=== PATIENT | female | born 1975 | race African-American/Black ===

== ENCOUNTER 2019-05-21 20:39 | Inpatient (IN) | payer MEDICARE, OTHER ==
[~2019-05-21] VITALS: Ht 152.4 cm; Wt 145.6 kg
[2019-05-21] VITALS (14 sets, daily range): BP systolic 44–235; BP diastolic 31–164
[2019-05-21] MEDS ORDERED: BUMEX2 MG PO ×2 (20:45→21:09)
[2019-05-21] MEDS ORDERED: HYDRALAZINE HCL25 MG (20:47)
[2019-05-21] MEDS ORDERED: GLUCOPHAGE500 MG PO (21:08)
[2019-05-21] MEDS ORDERED: ZESTRIL20 MG PO (21:08)
[2019-05-21] MEDS ORDERED: ALBUTEROL SULF8.5 GM INH (21:10)
[2019-05-21] MEDS ORDERED: K-DUR20 MEQ PO (21:10)
[2019-05-21] MEDS ORDERED: HYDRALAZINE HCL50 MG PO (21:11)
[2019-05-21] MEDS ORDERED: COZAAR25 MG PO (21:11)
[2019-05-21] MEDS ORDERED: FERROUS SULFAT325 MG PO (21:12)
[2019-05-21] MEDS ORDERED: CATAPRES0.2 MG PO (21:12)
[2019-05-21] MEDS ORDERED: NORMODYNE / TR200 MG PO (21:12)
[2019-05-21 21:32] LABS: BASOPHILS 0.2 % (0-2); EOSINOPHILS 0.5 % (0-7); HEMATOCRIT 43.1 % (36.0-48.0); HEMOGLOBIN 13.6 g/dL (12-16); IMMATURE GRANULOCYTES 0.3 % (0-5); MCH 28.4 pg (26.0-34.0); MCHC 31.6 g/dL (31.0-37.0); MEAN PLATELET VOLUME 9.5 fL (7.4-10.4); MONOCYTES 3.8 % (2-11); NEUTROPHILS 90.2 % (40-80); PLATELET COUNT 304 10x3/uL (130-400); RBC 4.79 10x6/uL (4.00-5.40); RDW 16.1 % (11.5-14.5); WBC 15.3 10x3/uL (4.8-10.8)
[2019-05-21 21:37] LABS: APTT 26.1 SECONDS (22.8-39.4); INR 1.1 (0.85-1.17); PROTIME 13.7 SECONDS (11.6-15.0)
[2019-05-21 21:38] LABS: D-DIMER-QUANTITATIVE 3.13 ug/mLFEU (0.20-0.54)
[2019-05-21 21:42] LABS: ALBUMIN 3.9 g/dL (3.4-5.0); ALKALINE PHOSPHATASE 102 U/L (46-116); ALT (SGPT) 34 U/L (10-68); BILIRUBIN - TOTAL 0.42 mg/dL (0.2-1.3); CALC OSMOLALITY 286 mosm/kg (275-300); CARBON DIOXIDE 24.2 mmol/L (21.0-32.0); CHLORIDE - SERUM 108 mmol/L (98-107); CREATININE - SERUM 0.7 mg/dL (0.6-1.3); GLUCOSE 199 mg/dL (74-106); POTASSIUM - SERUM 4.3 mmol/L (3.5-5.1); SODIUM 141 mmol/L (136-145); UREA NITROGEN 13 mg/dL (7-18); eGFR NON AFRICAN AMERICAN > 90 mL/min (90-120)
[2019-05-21] MEDS ORDERED: LIPITOR20 MG PO (21:48)
[2019-05-21] MEDS ORDERED: ROBAXIN500 MG PO (21:49)
[2019-05-21] MEDS ORDERED: BAYER CHEWABLE81 MG PO (21:53)
[2019-05-21 21:59] LABS: CKMB 2.2 U/L (0.0-3.6); CREATINE KINASE 81 UL (21-215); PRO BNP 560 pg/mL (0-125)
[2019-05-21 22:00] LABS: TROPONIN-I 0.412 ng/mL (0.000-0.060)
[2019-05-22] VITALS (35 sets, daily range): BP systolic 123–218; BP diastolic 71–143; Ht 152.4 cm; Wt 145.6 kg
[2019-05-22] MEDS ORDERED: CLARITIN 10 MG10 MG PO (01:03)
[2019-05-22] MEDS ORDERED: PROBIOTIC1 EAC1 PO (01:04)
[2019-05-22 04:30] LABS: BASOPHILS 0.1 % (0-2); EOSINOPHILS 0 % (0-7); HEMATOCRIT 40.6 % (36.0-48.0); HEMOGLOBIN 12.7 g/dL (12-16); IMMATURE GRANULOCYTES 0.4 % (0-5); LYMPHOCYTES 3.5 % (15-50); MCH 28.1 pg (26.0-34.0); MCHC 31.3 g/dL (31.0-37.0); MCV 89.8 fL (80.0-100.0); MEAN PLATELET VOLUME 10.2 fL (7.4-10.4); MONOCYTES 0.8 % (2-11); NEUTROPHILS 95.2 % (40-80); PLATELET COUNT 304 10x3/uL (130-400); RBC 4.52 10x6/uL (4.00-5.40); RDW 16.1 % (11.5-14.5)
[2019-05-22 05:10] LABS: ALBUMIN 3.4 g/dL (3.4-5.0); ALKALINE PHOSPHATASE 84 U/L (46-116); ALT (SGPT) 30 U/L (10-68); BILIRUBIN - TOTAL 0.53 mg/dL (0.2-1.3); CALC OSMOLALITY 289 mosm/kg (275-300); CALCIUM 8.5 mg/dL (8.5-10.1); CARBON DIOXIDE 26.2 mmol/L (21.0-32.0); CHLORIDE - SERUM 107 mmol/L (98-107); CKMB 9.1 U/L (0.0-3.6); CREATINE KINASE 168 UL (21-215); CREATININE - SERUM 0.8 mg/dL (0.6-1.3); GLUCOSE 163 mg/dL (74-106); POTASSIUM - SERUM 3.9 mmol/L (3.5-5.1); PROTEIN - SERUM 8.2 g/dL (6.4-8.2); SODIUM 143 mmol/L (136-145); UREA NITROGEN 15 mg/dL (7-18); eGFR NON AFRICAN AMERICAN 82 mL/min (90-120)
[2019-05-22 05:19] LABS: TROPONIN-I 2.686 ng/mL (0.000-0.060)
[2019-05-22 07:18] LABS: CKMB 9.5 U/L (0.0-3.6); CREATINE KINASE 130 UL (21-215)
[2019-05-22 07:23] LABS: TROPONIN-I 2.519 ng/mL (0.000-0.060)
[2019-05-22 13:32] LABS: CKMB 12.8 U/L (0.0-3.6); CREATINE KINASE 162 UL (21-215)
--- NOTE | 2019-05-22 14:52 | MORECARE ---
CASE MANAGEMENT DISCHARGE SUMMARY PATIENT: ARGENTINA RUTLEDGE UNIT: [id number] ADM DATE: 05/21/19 AGE: 44 : [birth year] SEX: F ROOM/BED: D.2304 AUTHOR: AVANI AVALOS PHYSICIAN: REFERRING PHYSICIAN: PRASHANT PAN MD DATE OF SERVICE: 05/22/19 Discharge Plan Patient Name: ARGENTINA RUTLEDGE Facility: [facility]:[place] : 1975 Planned Disposition: Home Anticipated Discharge Date: Discharge Date: Expected LOS: Initial Reviewer: [email or web address] Initial Review Date: 05/22/2019 Generated: 05/22/19 3:51 pm DCPIA - Discharge Planning Initial Assessment Updated by [email or web address]: Ritika Pace on 05/22/19 2:48 pm * Is the patient Alert and Oriented? Yes * How many steps to enter\exit or inside your home? * PCP CONOR AQUINO * Pharmacy [facility] * Preadmission Environment Home with Family * ADLs Partial Dependent * Partial ADLs (Assistance needed) Ambulation Bathing Dressing Eating Medication Management Toileting Transfers * Other Equipment WALKER, CANE, W/C, BSC, SC * List name and contact numbers for known caregivers / representatives who currently or will assist patient after discharge: ANDREW SHAVER [facility] [phone] * Verbal permission to speak to the caregivers and representatives has been obtained from the patient. Yes * Community resources currently utilized None * Additional services required to return to the preadmission environment? No * Can the patient safely return to the preadmission environment? Yes * Has this patient been hospitalized within the prior 30 days at any hospital? No Patient Name: ARGENTINA RUTLEDGE Page [id number] at 1452 All edits/amendments must be made on the electronic document DICTATION DATE: 05/22/191450 SENIOR LANDSCAPE ARCHITECT: ASPEN 05/22/191450 RPT#: [id number] DC DATE: STATUS: ADM IN [facility] [address] [place] [address] END OF REPORT
--- NOTE | 2019-05-22 15:04 | MORECARE ---
CASE MANAGEMENT DISCHARGE SUMMARY PATIENT: ARGENTINA RUTLEDGE UNIT: [id number] ADM DATE: 05/21/19 AGE: 44 : [birth year] SEX: F ROOM/BED: D.2304 AUTHOR: BAILEY,DOC PHYSICIAN: REFERRING PHYSICIAN: PRASHANT PAN MD DATE OF SERVICE: 05/22/19 Discharge Plan Patient Name: ARGENTINA RUTLEDGE Facility: [facility]:[place] : 1975 Planned Disposition: Home Anticipated Discharge Date: Discharge Date: Expected LOS: Initial Reviewer: [email or web address] Initial Review Date: 05/22/2019 Generated: 05/22/19 4:04 pm Comments DCP- Discharge Planning Updated by [email or web address]: Ritika Pace on 05/22/19 1:[address] Patient Name: ARGENTINA RUTLEDGE Admission Status: ER Accout number: [id number] Admission Date: 05-21-2019 : 1975 Admission Diagnosis: Attending: PRASHANT PAN Current LOS: 1 Anticipated DC Date: Planned Disposition: Home Primary Insurance: MEDICARE A & B Discharge Planning Comments: CM met with patient and her father to complete initial dc planning assessment. CM educated patient on the CM role and verbal consent given by patient to complete assessment. Patient lives at home with her mother where she is partially dependent with her care. At discharge patient plans to return home and feels this is a safe discharge. CM discussed availability of home health, rehab services, and medical equipment. Her family will drive her home. Patient denied known discharge needs at this time. CM will continue to follow and will assist as needed with dc plans/needs. Vinyl Hanger: Ritika Pace DCPIA - Discharge Planning Initial Assessment Updated by [email or web address]: Ritika Pace on 05/22/19 2:48 pm * Is the patient Alert and Oriented? Yes * How many steps to enter\exit or inside your home? * PCP CONOR AQUINO * Pharmacy [facility] * Preadmission Environment Home with Family * ADLs Partial Dependent * Partial ADLs (Assistance needed) Ambulation Bathing Dressing Eating Medication Management Toileting Transfers * Other Equipment WALKER, CANE, W/C, BSC, SC * List name and contact numbers for known caregivers / representatives who currently or will assist patient after discharge: ANDREW SHAVER - - [phone] * Verbal permission to speak to the caregivers and representatives has been obtained from the patient. Yes * Community resources currently utilized None * Additional services required to return to the preadmission environment? No * Can the patient safely return to the preadmission environment? Yes * Has this patient been hospitalized within the prior 30 days at any hospital? No Last DP export: 05/22/19 1:52 Patient Name: ARGENTINA RUTLEDGE Page [id number] at 1504 All edits/amendments must be made on the electronic document DICTATION DATE: 05/22/191503 PARALEGAL ASSISTANT: ASPEN 05/22/191503 RPT#: [id number] DC DATE: STATUS: ADM IN [facility] [address] [place] [address] END OF REPORT
[2019-05-22 18:28] LABS: CKMB 9.7 U/L (0.0-3.6); CREATINE KINASE 155 UL (21-215)
[2019-05-22 18:37] LABS: TROPONIN-I 2.982 ng/mL (0.000-0.060)
[2019-05-23 03:57] LABS: BASOPHILS 0.1 % (0-2); EOSINOPHILS 0.1 % (0-7); HEMATOCRIT 35.5 % (36.0-48.0); HEMOGLOBIN 11.5 g/dL (12-16); IMMATURE GRANULOCYTES 0.3 % (0-5); LYMPHOCYTES 14.5 % (15-50); MCH 28.3 pg (26.0-34.0); MCHC 32.4 g/dL (31.0-37.0); MONOCYTES 11.4 % (2-11); NEUTROPHILS 73.6 % (40-80); PLATELET COUNT 277 10x3/uL (130-400); RBC 4.07 10x6/uL (4.00-5.40); RDW 16.1 % (11.5-14.5); WBC 11.5 10x3/uL (4.8-10.8)
[2019-05-23 04:00] VITALS: BP 163/98
[2019-05-23 04:20] LABS: MCV 87.2 fL (80.0-100.0)
[2019-05-23 04:29] LABS: ANION GAP 9.2 mmol/L (8-16); CALCIUM 7.8 mg/dL (8.5-10.1); CARBON DIOXIDE 31.7 mmol/L (21.0-32.0); CREATININE - SERUM 0.9 mg/dL (0.6-1.3); POTASSIUM - SERUM 2.9 mmol/L (3.5-5.1)
[2019-05-23 09:09] VITALS: BP 110/74
[2019-05-23 16:20] VITALS: BP 122/81
[2019-05-23 21:13] VITALS: BP 138/65
[2019-05-24] VITALS (7 sets, daily range): BP systolic 117–195; BP diastolic 61–106
[2019-05-24 05:52] LABS: HEMATOCRIT 35.8 % (36.0-48.0); HEMOGLOBIN 11.4 g/dL (12-16); MCH 28.1 pg (26.0-34.0); MCHC 31.8 g/dL (31.0-37.0); MCV 88.4 fL (80.0-100.0); MEAN PLATELET VOLUME 9.8 fL (7.4-10.4); PLATELET COUNT 236 10x3/uL (130-400); RBC 4.05 10x6/uL (4.00-5.40); RDW 16.3 % (11.5-14.5)
[2019-05-24 05:53] LABS: WBC 8.2 10x3/uL (4.8-10.8)
[2019-05-24 06:15] LABS: CALC OSMOLALITY 283 mosm/kg (275-300); CALCIUM 7.8 mg/dL (8.5-10.1); CARBON DIOXIDE 30.1 mmol/L (21.0-32.0); CHLORIDE - SERUM 104 mmol/L (98-107); CREATININE - SERUM 0.8 mg/dL (0.6-1.3); GLUCOSE 136 mg/dL (74-106); SODIUM 141 mmol/L (136-145); UREA NITROGEN 14 mg/dL (7-18); eGFR NON AFRICAN AMERICAN 82 mL/min (90-120)
[2019-05-24 07:35] LABS: HYPOCHROMASIA 1+; LYMPHOCYTES 26 % (15-50); MONOCYTES 3 % (2-11); NEUTROPHILS 71 % (40-80); PLATELET ESTIMATE NORMAL
[2019-05-24 10:01] LABS: MAGNESIUM - SERUM 2.2 mg/dL (1.8-2.4); PHOSPHOROUS 3.4 mg/dL (2.5-4.9)
[2019-05-25 01:26] VITALS: BP 153/86
[2019-05-25 04:41] VITALS: BP 141/67
[2019-05-25 05:32] LABS: BASOPHILS 0.2 % (0-2); EOSINOPHILS 1.7 % (0-7); HEMATOCRIT 36.8 % (36.0-48.0); HEMOGLOBIN 11.5 g/dL (12-16); IMMATURE GRANULOCYTES 0.2 % (0-5); LYMPHOCYTES 18.6 % (15-50); MCH 28.2 pg (26.0-34.0); MCHC 31.3 g/dL (31.0-37.0); MCV 90.2 fL (80.0-100.0); MONOCYTES 9.2 % (2-11); NEUTROPHILS 70.1 % (40-80); PLATELET COUNT 256 10x3/uL (130-400); RBC 4.08 10x6/uL (4.00-5.40); RDW 16.3 % (11.5-14.5); WBC 9.2 10x3/uL (4.8-10.8)
[2019-05-25 05:45] LABS: CALC OSMOLALITY 284 mosm/kg (275-300); CALCIUM 7.9 mg/dL (8.5-10.1); CARBON DIOXIDE 32.6 mmol/L (21.0-32.0); CHLORIDE - SERUM 105 mmol/L (98-107); CREATININE - SERUM 0.8 mg/dL (0.6-1.3); GLUCOSE 144 mg/dL (74-106); SODIUM 142 mmol/L (136-145); UREA NITROGEN 11 mg/dL (7-18); eGFR NON AFRICAN AMERICAN 82 mL/min (90-120)
[2019-05-25 05:53] LABS: POTASSIUM - SERUM 3.1 mmol/L (3.5-5.1)
[2019-05-25 08:43] VITALS: BP 125/72
[2019-05-25] MEDS ORDERED: NORMODYNE / TR300 MG PO (12:31)
[2019-05-25] MEDS ORDERED: CARDIZEM SR90 MG PO (12:32)
[2019-05-25 12:54] VITALS: BP 162/90
--- NOTE | 2019-05-25 13:25 | MORECARE ---
CASE MANAGEMENT DISCHARGE SUMMARY PATIENT: ARGENTINA RUTLEDGE UNIT: [id number] ADM DATE: 05/21/19 AGE: 44 : [birth year] SEX: F ROOM/BED: D.2227 AUTHOR: BAILEY,DOC PHYSICIAN: REFERRING PHYSICIAN: PRASHANT PAN MD DATE OF SERVICE: 05/25/19 Discharge Plan Patient Name: ARGENTINA RUTLEDGE Facility: [facility]:[place] : 1975 Planned Disposition: Home Anticipated Discharge Date: Discharge Date: Expected LOS: Initial Reviewer: [email or web address] Initial Review Date: 05/22/2019 Generated: 05/25/19 2:25 pm Comments DCP- Discharge Planning Updated by [email or web address]: Poonam Gutiérrez on 05/25/19 12:[address] Discharge orders received. Patient and mother in agreement to discharge. Mother is in the room. Her oxygen saturation is 96% on room air which does not qualify her for oxygen. No further needs identified. CM will continue to follow and assist with discharge planning/needs. DCP- Discharge Planning Updated by [email or web address]: Ritika Pace on 05/22/19 1:[address] Patient Name: ARGENTINA RUTLEDGE Admission Status: ER Accout number: [id number] Admission Date: 05-21-2019 : 1975 Admission Diagnosis: Attending: PRASHANT PAN Current LOS: 1 Anticipated DC Date: Planned Disposition: Home Primary Insurance: MEDICARE A & B Discharge Planning Comments: CM met with patient and her father to complete initial dc planning assessment. CM educated patient on the CM role and verbal consent given by patient to complete assessment. Patient lives at home with her mother where she is partially dependent with her care. At discharge patient plans to return home and feels this is a safe discharge. CM discussed availability of home health, rehab services, and medical equipment. Her family will drive her home. Patient denied known discharge needs at this time. CM will continue to follow and will assist as needed with dc plans/needs. Certified Ethical Hacker: Ritika Pace DCPIA - Discharge Planning Initial Assessment Updated by [email or web address]: Ritika Pace on 05/22/19 2:48 pm * Is the patient Alert and Oriented? Yes * How many steps to enter\exit or inside your home? * PCP CONOR AQUINO * Pharmacy [facility] * Preadmission Environment Home with Family * ADLs Partial Dependent * Partial ADLs (Assistance needed) Ambulation Bathing Dressing Eating Medication Management Toileting Transfers * Other Equipment WALKER, CANE, W/C, BSC, SC * List name and contact numbers for known caregivers / representatives who currently or will assist patient after discharge: ALEYDA THAKKAR - - [phone] * Verbal permission to speak to the caregivers and representatives has been obtained from the patient. Yes * Community resources currently utilized None * Additional services required to return to the preadmission environment? No * Can the patient safely return to the preadmission environment? Yes * Has this patient been hospitalized within the prior 30 days at any hospital? No Coverage Notice Reviewer: [id number] Safia Gutiérrez Notice Issued Date-Time: 05/25/2019 9:51 Notice Type: Patient Choice Letter Notice Delivered To: Family Member Relationship to Patient: Mother Feather Mixer Name: Aleyda Thakkar Delivery Method: HAND - Hand Delivered Sharee Days: Prior Verbal Notification: Recipient Understood Notice: Yes Recipient Signature: Yes Med Rec Note Co-signed by Attending: Coverage Notice Comment: [facility] for Jan Reviewer: [email or web address] Safia Gutiérrez Notice Issued Date-Time: 05/25/2019 9:51 Notice Type: IM Discharge Notice Notice Delivered To: Family Member Relationship to Patient: Mother Feather Mixer Name: Aleyda Thakkar Delivery Method: HAND - Hand Delivered Sharee Days: Prior Verbal Notification: Recipient Understood Notice: Yes Recipient Signature: Yes Med Rec Note Co-signed by Attending: Coverage Notice Comment: IMM explained, signed by mother, given, copy placed in Last DP export: 05/22/19 2:04 Patient Name: ARGENTINA RUTLEDGE Page [id number] at 1325 All edits/amendments must be made on the electronic document DICTATION DATE: 05/25/19 1325 AMMUNITION ASSEMBLY II LABORER: ASPEN 05/25/19 1325 RPT#: [id number] DC DATE: STATUS: ADM IN [facility] [address] [place] [address] END OF REPORT
--- NOTE | 2019-05-25 16:49 | MORECARE ---
CASE MANAGEMENT DISCHARGE SUMMARY PATIENT: ARGENTINA RUTLEDGE UNIT: [id number] ADM DATE: 05/21/19 AGE: 44 : 73 SEX: F ROOM/BED: D.2227 AUTHOR: BAILEY,DOC PHYSICIAN: REFERRING PHYSICIAN: PRASHANT PAN MD DATE OF SERVICE: 05/25/19 Discharge Plan Patient Name: ARGENTINA RUTLEDGE Facility: [facility]:[place] : 1975 Planned Disposition: Home Anticipated Discharge Date: Discharge Date: 05/25/2019 Expected LOS: 0 Initial Reviewer: [email or web address] Initial Review Date: 05/22/2019 Generated: 05/25/19 5:49 pm Comments DCP- Discharge Planning Updated by [email or web address]: Poonam Gutiérrez on 05/25/19 12:[address] Discharge orders received. Patient and mother in agreement to discharge. Mother is in the room. Her oxygen saturation is 96% on room air which does not qualify her for oxygen. No further needs identified. CM will continue to follow and assist with discharge planning/needs. DCP- Discharge Planning Updated by [email or web address]: Ritika Pace on 05/22/19 1:[address] Patient Name: ARGENTINA RUTLEDGE Admission Status: ER Accout number: [id number] Admission Date: 05-21-2019 : 1975 Admission Diagnosis: Attending: PRASHANT PAN Current LOS: 1 Anticipated DC Date: Planned Disposition: Home Primary Insurance: MEDICARE A & B Discharge Planning Comments: CM met with patient and her father to complete initial dc planning assessment. CM educated patient on the CM role and verbal consent given by patient to complete assessment. Patient lives at home with her mother where she is partially dependent with her care. At discharge patient plans to return home and feels this is a safe discharge. CM discussed availability of home health, rehab services, and medical equipment. Her family will drive her home. Patient denied known discharge needs at this time. CM will continue to follow and will assist as needed with dc plans/needs. Marriage And Family Therapist: Ritika Pace DCPIA - Discharge Planning Initial Assessment Updated by [email or web address]: Ritika Pace on 05/22/19 2:48 pm * Is the patient Alert and Oriented? Yes * How many steps to enter\exit or inside your home? * PCP CONOR AQUINO * Pharmacy [facility] * Preadmission Environment Home with Family * ADLs Partial Dependent * Partial ADLs (Assistance needed) Ambulation Bathing Dressing Eating Medication Management Toileting Transfers * Other Equipment WALKER, CANE, W/C, BSC, SC * List name and contact numbers for known caregivers / representatives who currently or will assist patient after discharge: ALEYDA THAKKAR - - [phone] * Verbal permission to speak to the caregivers and representatives has been obtained from the patient. Yes * Community resources currently utilized None * Additional services required to return to the preadmission environment? No * Can the patient safely return to the preadmission environment? Yes * Has this patient been hospitalized within the prior 30 days at any hospital? No Coverage Notice Reviewer: [id number] Safia Gutiérrez Notice Issued Date-Time: 05/25/2019 9:51 Notice Type: Patient Choice Letter Notice Delivered To: Family Member Relationship to Patient: Mother Outdoor Emergency Care Technician Name: Aleyda Thakkar Delivery Method: HAND - Hand Delivered Sharee Days: Prior Verbal Notification: Recipient Understood Notice: Yes Recipient Signature: Yes Med Rec Note Co-signed by Attending: Coverage Notice Comment: [facility] for Jan Reviewer: [email or web address] Gutiérrez Notice Issued Date-Time: 05/25/2019 9:51 Notice Type: IM Discharge Notice Notice Delivered To: Family Member Relationship to Patient: Mother Outdoor Emergency Care Technician Name: Aleyda Thakkar Delivery Method: HAND - Hand Delivered Sharee Days: Prior Verbal Notification: Recipient Understood Notice: Yes Recipient Signature: Yes Med Rec Note Co-signed by Attending: Coverage Notice Comment: IMM explained, signed by mother, given, copy placed in Last DP export: 05/25/19 12:25 Patient Name: ARGENTINA RUTLEDGE Page 29795 at 1649 All edits/amendments must be made on the electronic document DICTATION DATE: 05/25/191648 MOBILE HOME LOT UTILITY WORKER: ASPEN 05/25/191648 RPT#: [id number] DC DATE:05/25/19 STATUS: DIS IN [facility] [address] [place] [address] END OF REPORT
== END 2019-05-25 16:36 | disposition home or self-care (01) | DRG 280 ==
LOC: D.ER 20:39 → D.ICU 23:35 → D.MS 23:35
PROVIDERS: Family Medicine; ADMIT Internal Medicine Nephrology; ATTEND Internal Medicine Nephrology
DX: I11.0 Hypertensive heart disease with heart failure (principal); J96.02 Acute respiratory failure with hypercapnia; I21.4 Non-ST elevation (NSTEMI) myocardial infarction; J96.01 Acute respiratory failure with hypoxia; J18.9 Pneumonia, unspecified organism; Z68.44 Body mass index [BMI] 60.0-69.9, adult; I16.1 Hypertensive emergency; I24.8 Other forms of acute ischemic heart disease; E66.01 Morbid (severe) obesity due to excess calories; E11.9 Type 2 diabetes mellitus without complications; E78.5 Hyperlipidemia, unspecified; R00.0 Tachycardia, unspecified; I50.33 Acute on chronic diastolic (congestive) heart failure; E87.6 Hypokalemia

== ENCOUNTER → 2020-11-15 11:44 | Outpatient (CLI) | payer MEDICARE, OTHER, MEDICAID ==
[2019-05-22 12:18] VITALS: BMI 62.6
[~2020-11-15 11:44] MED LIST: ALBUTEROL SULF8.5 GM INH; BAYER CHEWABLE81 MG PO; BUMEX2 MG PO; CARDIZEM SR90 MG PO; CATAPRES0.2 MG PO; CLARITIN 10 MG10 MG PO; COZAAR25 MG PO; FERROUS SULFAT325 MG PO; GLUCOPHAGE500 MG PO; HYDRALAZINE HCL25 MG; HYDRALAZINE HCL50 MG PO; K-DUR20 MEQ PO; LIPITOR20 MG PO; NORMODYNE / TR200 MG PO; NORMODYNE / TR300 MG PO; PROBIOTIC1 EAC1 PO; ROBAXIN500 MG PO; ZESTRIL20 MG PO
== END | disposition home or self-care (01) ==
LOC: EDBD 11:44 → D.LAB 11:44
PROVIDERS: ATTEND Emergency Medicine
DX: R05 Cough (principal); Z11.52 Encounter for screening for COVID-19

== ENCOUNTER → 2020-12-12 14:19 | Outpatient (CLI) | payer MEDICARE, OTHER, MEDICAID ==
[2019-05-22 12:18] VITALS: BMI 62.6
== END | disposition home or self-care (01) ==
LOC: D.LAB 14:19
PROVIDERS: ATTEND Emergency Medicine
DX: Z11.52 Encounter for screening for COVID-19 (principal)

== ENCOUNTER → 2020-12-16 07:40 | Outpatient (CLI) | payer MEDICARE, OTHER, MEDICAID ==
[2019-05-22 12:18] VITALS: BMI 62.6
== END | disposition home or self-care (01) ==
LOC: EDBD 11-20 09:00 → D.RT 11-20 09:00
PROVIDERS: ATTEND Emergency Medicine
DX: R05 Cough (principal)